=== PATIENT | male | born 1950 | race Caucasian/White ===

== ENCOUNTER 2017-05-04 10:09 | Outpatient (CLI) ==
--- NOTE | 2017-05-04 10:40 | DI ---
EXAM: Radiographs, cervical spine HISTORY: Neck pain. COMPARISON: None available. TECHNIQUE: 5 views. FINDINGS: There is straightening of the normal lordosis. There is approximately 0.2 cm anterolisth esis of C7 on T1. Vertebral body heights are normal. There is moderate loss of disc height at C5-6 and mild loss of disc height from C3-4 through C6-7 otherwise. Moderate endplate osteophyte format ion, facet arthropathy and uncovertebral hypertrophy noted throughout the cervical spine. No fractu re identified. Prevertebral soft tissues are unremarkable. IMPRESSION: Moderate degenerative changes. Consider correlation with MRI if further evaluation is needed.
== END 2017-05-04 10:10 | disposition home or self-care (01) ==
LOC: RAD 10:09
PROVIDERS: ATTEND Internal Medicine
DX: M54.2 Cervicalgia (principal); M62.830 Muscle spasm of back